=== PATIENT | female | born 1985 | race American Indian/Alaskan Native ===

== ENCOUNTER 2018-01-27 07:16 | Day surgery (SDC) | payer BC, OTHER ==
[~2018-01-27 07:16] MED LIST: Lactated Ringers 1,000 ML IV SCH; Sodium Chloride 0.9% 10 ML Syringe FLUSH PRN; Sodium Chloride 0.9% 2.5 ML Syringe FLUSH PRN
--- NOTE | 2018-01-27 07:55 | PCM.PREANE ---
Preanesthetic Assessment - Anesthesia/Transfusion/Family Hx Anesthesia History: Prior Anesthesia Without Reaction Family History of Anesthesia Reaction: No Transfusion History: No Prior Transfusion(s) - Review of Systems General: No Symptoms Pulmonary: No Symptoms Cardiovascular: No Symptoms Gastrointestinal: No Symptoms Neurological: No Symptoms Other: Reports: None - Physical Assessment NPO Status Date: 01/26/18 NPO Status Time: 23:15 O2 Sat by Pulse Oximetry: 98 Respiratory Rate: 15 Vital Signs: Last Vital Signs Temp 36.0 C 01/27/18 07:30 Pulse 83 01/27/18 07:30 Resp 15 01/27/18 07:30 BP 124/67 01/27/18 07:30 Pulse Ox 98 01/27/18 07:30 Height: 1.78 m Weight: 116.573 kg ASA Class: 2 Mental Status: Alert & Oriented x3 Airway Class: Mallampati = 1 Dentition: Reports: Normal Dentition ROM/Head Extension: Full Lungs: Clear to Auscultation, Normal Respiratory Effort Cardiovascular: Regular Rate, Regular Rhythm - Lab Values: Laboratory Last Values WBC 6.56 K/uL (4.0-11.0) 01/27/18 07:35 RBC 4.84 M/uL (4.30-5.90) 01/27/18 07:35 Hgb 14.6 g/dL (12.0-16.0) 01/27/18 07:35 Hct 42.3 % (36.0-46.0) 01/27/18 07:35 MCV 87.4 fL (80.0-98.0) 01/27/18 07:35 MCH 30.2 pg (27.0-32.0) 01/27/18 07:35 MCHC 34.5 g/dL (31.0-37.0) 01/27/18 07:35 RDW Std Deviation 42.9 fl (28.0-62.0) 01/27/18 07:35 RDW Coeff of Arnaud 14 % (11.0-15.0) 01/27/18 07:35 Plt Count 220 K/uL (150-400) 01/27/18 07:35 MPV 10.60 fL (7.40-12.00) 01/27/18 07:35 Nucleated RBC % 0.0 /100WBC 01/27/18 07:35 Nucleated RBCs # 0 K/uL 01/27/18 07:35 Urine HCG, Qual NEGATIVE (NEGATIVE) 01/27/18 07:25 - Allergies Allergies/Adverse Reactions: Allergies Allergy/AdvReac Type Severity Reaction Status Date / Time No Known Allergies Allergy Verified 01/22/18 09:56 - Anesthesia Plan Pre-Op Medication Ordered: None - Acknowledgements Anesthesia Type Planned: General Anesthesia Pt an Appropriate Candidate for the Planned Anesthesia: Yes Alternatives and Risks of Anesthesia Discussed w Pt/Guardian: Yes Pt/Guardian Understands and Agrees with Anesthesia Plan: Yes Additional Comments: PMH: 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 Wants no narcotics. Will plan toradol and iv acetomenaphin for analgesia PreAnesthesia Questionnaire - Past Health History Medical/Surgical History: Denies Medical/Surgical History HEENT History: Reports: None Endocrine/Metabolic History: Reports: Obesity/BMI 30+ - Past Surgical History Head Surgeries/Procedures: Reports: None HEENT Surgical History: Reports: Oral Surgery Other HEENT Surgeries/Procedures: wisdom teeth extraction - SUBSTANCE USE Smoking Status *Q: Former Smoker Tobacco Use Within Last Twelve Months: No Recreational Drug Use History: No - HOME MEDS Home Medications: Home Meds Iron 65 mg PO DAILY 01/22/18 [History] PNV95/Ferrous Fumarate/FA [ Vitamin Tablet] 1 tab PO DAILY 01/22/18 [ History] - CURRENT (IN HOUSE) MEDS Current Meds: Current Medications Lactated Ringer's (Ringers, Lactated) 1,000 mls @ 125 mls/hr IV ASDIRECTED CRYSTAL Sodium Chloride (Saline Flush) 10 ml FLUSH ASDIRECTED PRN PRN Reason: Keep Vein Open Sodium Chloride (Saline Flush) 2.5 ml FLUSH ASDIRECTED PRN PRN Reason: Keep Vein Open
[2018-01-27] MEDS ORDERED: Fluorescein 5 ML Vial ONE (08:05)
[2018-01-27] MEDS ORDERED: Ondansetron 4 MG/2 ML SDV ONE (08:24)
[2018-01-27] MEDS ORDERED: Propofol 200 MG/20 ML SDV ONE ×2 (08:24→09:10)
[2018-01-27] MEDS ORDERED: Lidocaine 2% 5 ML SDV ONE (08:24)
[2018-01-27] MEDS ORDERED: fentaNYL 250 MCG/5 ML SDV ONE (08:24)
[2018-01-27] MEDS ORDERED: Midazolam 1 MG/ML 2 ML SDV ONE (08:24)
[2018-01-27] MEDS ORDERED: Ketorolac 30 MG/ML SDV ONE (08:37)
[2018-01-27] MEDS ORDERED: Lidocaine 1% 50 ML MDV ONE (08:38)
[2018-01-27] MEDS ORDERED: Lidocaine 1% 20 ML MDV ONE (08:38)
[2018-01-27] MEDS ORDERED: fentaNYL 100 MCG/2 ML SDV ONE (09:07)
[2018-01-27] MEDS ORDERED: diphenhydrAMINE 50 MG/ML SDV ONE (09:10)
[2018-01-27] MEDS ORDERED: Lactated Ringers 1,000 ML IV SCH (10:00)
--- NOTE | 2018-01-27 10:01 | PCM.OPNOTE ---
- General Post-Op/Procedure Note Date of Surgery/Procedure: 01/27/18 Operative Procedure(s): Diagnostic hysteroscopy, dialitation with curettage with Insertion of Mirena IUD Findings: Anterverted uterus, sounded to 9cm. No adnexal masses. Fluffy endometrium. No polyp or fibroids Pre Op Diagnosis: 1) Abnormal uterine bleeding. 2) Complex endometrial hyperplasia without atypia Post-Op Diagnosis: Same Anesthesia Technique: Spinal Primary Surgeon: Candice Swenson Pathology: EMB and ECC Fluid Replacement, Intraop: 1,100 EBL in mLs: 20 Complications: None Condition: Good Free Text/Narrative:: Intake & Output 01/26/18 01/27/18 01/27/18 22:59 06:59 14:59 Intake Total 1300 Balance 1300
[2018-01-27] MEDS ORDERED: Succinylcholine 200 MG/10 ML MDV ONE (10:23)
--- NOTE | 2018-01-27 11:04 | PCM48HPAN ---
Post Anesthesia Note - EVALUATION WITHIN 48HRS OF ANESTHETIC Vital Signs in Normal Range: Yes Patient Participated in Evaluation: Yes Respiratory Function Stable: Yes Airway Patent: Yes Cardiovascular Function Stable: Yes Hydration Status Stable: Yes Pain Control Satisfactory: Yes Nausea and Vomiting Control Satisfactory: Yes Mental Status Recovered: Yes Resp Rate: 14
--- NOTE | 2018-01-27 13:11 | OR ---
SURGEON: Candice Swenson MD DATE OF PROCEDURE: 01/27/2018 PREOPERATIVE DIAGNOSES: 1. Abnormal uterine bleeding. 2. Complex endometrial hyperplasia without atypia. POSTOPERATIVE DIAGNOSES: 1. Abnormal uterine bleeding. 2. Complex endometrial hyperplasia without atypia. PROCEDURE: Diagnostic hysteroscopy, dilatation with curettage and insertion of Mirena IUD. ANESTHESIA: Spinal. ESTIMATED BLOOD LOSS: Less than 50 mL. COMPLICATIONS: None. DISPOSITION: Stable to recovery room. PATHOLOGY: Endometrial and endocervical curettings. FINDINGS: Mobile, anteverted uterus sounded to 9 cm. No cervical lesions visualized. No adnexal masses palpable. Hysteroscopic findings revealed fluffy endometrial lining with no definite polyps and no fibroids were visualized. Both fallopian tube ostia were visualized. BRIEF HISTORY: The patient is a 32-year-old, who presented to the office for evaluation for ongoing irregular heavy uterine bleeding with clots and flooding. Office P[place]elle endometrial biopsy was consistent with complex endometrial hyperplasia without atypia and a pelvic sonogram showed thickened heterogeneous endometrial lining. Oral medroxyprogesterone slowed her bleeding down, but it continued and based on the findings on both the ultrasound and the complex endometrial hyperplasia. We discussed management options and she opted for a Mirena IUD. Based on her on going bleeding and her results, I also recommended a diagnostic hysteroscopy , dilatation and curettage with placement of Mirena IUD. The risks and benefits of the procedure were explained in detail with the patient including but not limited to bleeding, infection, injury to the uterus, cervix, and other surrounding organs. The patient accepted the recommendation. Appropriate surgical consent was obtained. DESCRIPTION OF THE PROCEDURE: The patient was taken to the operating room where a spinal anesthesia was performed without difficulty. After the spinal had been found to be adequate, she was then placed in dorsal lithotomy position, prepped and draped in the usual sterile fashion for vaginal procedure. The bladder was emptied. A time- out was held. SCDs were in place. Examination under anesthesia revealed the aforementioned findings. A bivalve speculum was placed in the vagina and the anterior lip of the cervix was grabbed with an Allis clamp. The uterine cavity was sounded to a depth of 9 cm. An ECC was performed and a sample was collected with the Cytobrush. The cervical os was then serially dilated up to a number #7 Hegar dilator and a 6.5 mm MyoSure scope was placed into the uterine cavity under direct visualization using normal saline as a distention media. Upon entering the uterine cavity, the aforementioned pathology was noted. The hysteroscope was removed and a gentle curettage was then performed retrieving moderate amount of tissue. Survey of the uterine cavity post curettage revealed no uterine wall injuries. The Mirena IUD was then primed according to the fruit coordinator's guideline and was inserted into the uterine cavity without difficulty. The string was then cut. Once this was completed, all the instruments were removed from the patient's vagina and the area of the cervix where the Allis clamp was placed was found to be hemostatic. All sponge and instrument counts were correct. Input and output of normal saline were recorded by the MyoSure fluid management system. The deficit was recorded as 150 mL. The patient was taken to the recovery room in a stable condition. BECKA / ISAI /[id number]
== END 2018-01-27 12:50 | disposition home or self-care (01) ==
LOC: MW.SDS 07:16
PROVIDERS: ATTEND Obstetrics & Gynecology
DX: N85.01 Benign endometrial hyperplasia (principal); N87.9 Dysplasia of cervix uteri, unspecified; E66.9 Obesity, unspecified; Z68.36 Body mass index [BMI] 36.0-36.9, adult; Z87.891 Personal history of nicotine dependence; Z79.899 Other long term (current) drug therapy
CPT/HCPCS: 36415; 58300; 58558; 81025; 85027; J1200; J1885; J2250; J2405; J3010; J7120; 88305; J0330; J2704

== ENCOUNTER 2023-02-18 16:39 | Emergency (ER) | payer BC, OTHER ==
[2023-02-18 17:40] LABS: BASOPHILS PERCENT AUTO 0.3 % (0.0-1.5); EOSINOPHILS ABSOLUTE AUTO 0.2 K/uL (0.0-0.7); EOSINOPHILS PERCENT AUTO 2.1 % (0.0-7.0); HEMATOCRIT 44.2 % (36.0-46.0); HEMOGLOBIN 14.7 g/dL (12.0-16.0); LYMPHOCYTES ABSOLUTE AUTO 2.5 K/uL (0.6-2.4); LYMPHOCYTES PERCENT AUTO 35.4 % (16.0-40.0); MEAN CORPUSCULAR HEMOGLOBIN 30.2 pg (27.0-32.0); MEAN CORPUSCULAR HGB CONC 33.3 g/dL (31.0-37.0); MEAN CORPUSCULAR VOLUME 90.9 fL (80.0-98.0); MONOCYTES ABSOLUTE AUTO 0.4 K/uL (0.0-0.8); MONOCYTES PERCENT AUTO 5.4 % (0.0-15.0); NEUTROPHILS PERCENT AUTO 56.8 % (48.0-80.0); NRBC ABSOLUTE 0 K/uL; PLATELET COUNT,PLT 294 K/uL (150-400); RED BLOOD CELL COUNT 4.86 M/uL (4.30-5.90); WHITE BLOOD CELL COUNT,WBC 7.04 K/uL (4.0-11.0)
[2023-02-18 17:44] LABS: APPEARANCE,URINE CLEAR; BILIRUBIN,URINE NEGATIVE (NEGATIVE); COLOR,URINE YELLOW; GLUCOSE,URINE 100 mg/dL (NEGATIVE); KETONES,URINE NEGATIVE (NEGATIVE); LEUKOCYTE ESTERASE,URINE NEGATIVE (NEGATIVE); NITRITE,URINE NEGATIVE (NEGATIVE); OCCULT BLOOD,URINE NEGATIVE (NEGATIVE); PH,URINE 6.5 (5.0-8.0); PROTEIN,URINE NEGATIVE (NEGATIVE); UROBILINOGEN,URINE 0.2 EU/dL (<2.0)
[2023-02-18 17:50] LABS: BACTERIA,URINE NOT SEEN (NEGATIVE); EPITHELIAL CELLS,URINE RARE (NONE-FEW); RBC,URINE 0-1 (0-2/HPF); WBC,URINE NONE SEEN (0-5/HPF)
[2023-02-18 18:40] LABS: A/G RATIO 0.8 (0.9-1.6); ALBUMIN 3.2 g/dL (3.4-5.0); BILIRUBIN TOTAL 0.4 mg/dL (0.2-1.0); CALCIUM 9.2 mg/dL (8.5-10.1); CARBON DIOXIDE,CO2 28.6 mmol/L (21.0-32.0); CREATININE 0.7 mg/dL (0.6-1.0); EST CRCL DRUG DOSING (CG) 124.52 mL/min; POTASSIUM,K 4.5 mmol/L (3.5-5.1)
== END 2023-02-18 19:02 | disposition home or self-care (01) ==
LOC: MW.ED 16:39
DX: O99.891 Other specified diseases and conditions complicating pregnancy (principal); R10.2 Pelvic and perineal pain; O99.210 Obesity complicating pregnancy, unspecified trimester
CPT/HCPCS: 36415; 80053; 81001; 84702; 85025; 99283; 99284